=== PATIENT | male | born 1990 | race Caucasian/White ===

== ENCOUNTER 2017-08-30 19:33 | Observation (INO) ==
--- NOTE | 2017-08-30 19:41 | Emergency Department Note ---
Disposition Clinical Impression: Seizure, Vomiting, Abnormal EKG, Diarrhea Disposition: Admitted As Inpatient Referrals: NONE,PCP [Primary Care Provider] - Forms: ED Satisfaction Letter General Adult HPI - General Chief complaint: ED Nausea/Vomiting/Diarrhea Stated complaint: N/V vertigo Time Seen by Provider: 08/30/17 19:39 - History of Present Illness HPI Narrative: 27-year-old male reports to the emergency department complaining of vomiting and diarrhea which started after work today. There is been no blood or black material in the emesis or stool. He denies abdominal pain. The patient did not eat any unusual foods, there is no history of fever, the patient has not been exposed to other persons with the vomiting or diarrheal type illness. He reports some muscle spasms. He describes an occasional tinge or twitch in his body. There is no history of connor seizure-like activity. No chest pain or shortness of breath. No syncope weakness or dizziness. The patient denies any major medical problems. He does not take medications daily. There is no history of rash back pain or urinary problems. There is no history of confusion. No cough runny nose or pain or sore throat. Vomiting and diarrhea are reported. Pain Scale: 0 - Related Data Home Medications Medication Instructions Recorded Confirmed Buprenorphine HCl/Naloxone HCl 1 each SL BID 08/30/17 08/30/17 [Buprenorphin-Naloxon 8-2 mg Sl] Gabapentin [Neurontin] 300 mg PO TID 08/30/17 08/30/17 Allergies Allergy/AdvReac Type Severity Reaction Status Date / Time [facility] [[facility]] Allergy See Verified 08/30/17 19:34 Comments All systems ED: reviewed and negative except as stated. Past Medical History - Past Medical History Medical history: Reports: no medical history Physical Exam - General Limitations: no limitations General appearance: alert, in no apparent distress - Head Head exam: atraumatic, normocephalic, normal inspection - Eye Eye exam: Present: normal appearance, PERRL, EOMI. Absent: scleral icterus, conjunctival injection, mydriasis, periorbital swelling - ENT ENT exam: normal exam, normal oropharynx, mucous membranes moist, TM's normal bilaterally, normal external ear exam - Neck Neck exam: Present: normal inspection, full ROM, trachea midline. Absent: tenderness - Chest Chest inspection: Present: symmetric chest wall rise. Absent: tenderness - Respiratory Respiratory exam: Present: normal lung sounds bilaterally. Absent: respiratory distress, wheezes, stridor, accessory muscle use, prolonged expiratory phase - Cardiovascular Cardiovascular exam: Present: regular rate, normal rhythm, normal heart sounds - Abdominal Exam Abdominal exam: Present: soft, Non-Tender, normal bowel sounds. Absent: tenderness, distention, guarding, rebound, rigidity, Quispe's sign, Rovsing's sign, tenderness at McBurney's Point, pulsatile mass - Extremities Exam Extremities exam: Present: normal inspection, full ROM, normal capillary refill. Absent: tenderness, pedal edema, joint swelling, calf tenderness - Expanded Lower Extremity Exam Neurovascular/Tendon exam: Present: normal capillary refill. Absent: motor deficit, sensory deficit, tendon deficit, extremity cold to touch, pallor - Back Exam Back exam: Present: normal inspection, full ROM. Absent: tenderness, CVA tenderness (R), CVA tenderness (L), vertebral tenderness - Neurological Exam Neurological exam: Present: alert, oriented X3, CN II-XII intact. Absent: motor sensory deficit - Psychiatric Psychiatric exam: Present: normal affect, normal mood - Skin Skin exam: Present: warm, dry, intact, normal color. Absent: rash, cyanosis, diaphoresis, erythema, pallor, mottled Course Course Narrative: The patient was being monitored in the emergency department, he stood up to urinate and then developed convulsive activity and fell, he was caught by nursing did not hit the floor and sustained no trauma. Ativan was given 2 mg IV 1 and he recovered and seizure activity abated. Vital Signs Temperature 98.0 F 08/30/17 19:35 Pulse Rate 83 08/30/17 19:35 Respiratory Rate 18 08/30/17 19:35 Blood Pressure 125/56 08/30/17 19:35 O2 Sat by Pulse Oximetry 98 08/30/17 19:35 Temperature 98.0 F 08/30/17 19:43 Pulse Rate 16 08/30/17 21:24 Respiratory Rate 16 08/30/17 21:24 Blood Pressure 136/62 08/30/17 21:24 O2 Sat by Pulse Oximetry 97 08/30/17 21:24 Oxygen Delivery Oxygen Delivery Nasal Cannula Medical Decision Making - [facility] Narrative Medical decision making narrative: The patient's laboratory studies are unremarkable, CT head and chest x-ray are negative. EKG shows what appear to be ST depressions in V3 and V4 there is an intraventricular conduction delay as well. Troponin negative. The patient does not describe chest pain. The patient denied any medical history but on review he may have had a seizure many many years ago, he is currently not treated, mother is here and reports he has never had a seizure. The patient does not describe recurrent seizures. Based on the patient's apparent grand mal seizure, abnormal EKG, complaints of recurrent vomiting and diarrhea, I thought it would be appropriate to admit the patient the hospital. I discussed case with the hospitalist on-call who has accepted the patient to their care. - Lab Data Lab results reviewed: Yes I reviewed the patient's lab results. Result diagrams: 08/30/17 20:00 08/30/17 20:00 Lab Results 08/30/17 08/30/17 08/30/17 Range/Units 20:00 20:00 20:00 WBC 7.2 (4.3-11.1) K/mcL RBC 5.33 (4.19-5.50) M/mcL Hgb 15.3 (12.9-16.9) g/dL Hct 43.6 (37.5-50.1) % MCV 81.8 L (83.0-100.0) fL MCH 28.7 (28.0-33.3) pg MCHC 35.1 (31.6-35.5) g/dL RDW 12.3 (11.5-14.5) % Plt Count 180 (140-400) K/mcL MPV 10.5 (9.4-12.4) fL Immature Gran % 0.3 (0-4) % Seg Neutrophils % 76.3 % Lymphocytes % 16.5 % Monocytes % 6.4 % Eosinophils % 0.1 % Basophils % 0.4 % Neutrophils # 5.5 (1.6-8.9) K/mcL Lymphocytes # 1.2 (0.6-4.6) K/mcL Monocytes # 0.5 (0.0-1.3) K/mcL Eosinophils # 0.0 (0.0-0.6) K/mcL Basophils # 0.0 (0.0-0.2) K/mcL Sodium 142 (136-145) mEq/L Potassium 3.6 (3.5-5.1) mEq/L Chloride 107 (98-107) mEq/L Carbon Dioxide 26 (23-29) mEq/L BUN 11 (6-20) mg/dL Creatinine 0.98 (0.70-1.30) mg/dL Est GFR ( Amer) > 60 (> 60) Est GFR (Non-Af Amer) > 60 (> 60) BUN/Creatinine Ratio 11 (6-26) Glucose 115 H (70-105) mg/dL POC Glucose (70-99) mg/dL Calculated Osmolality 294 (280-300) Lactic Acid (0.5-2.2) mmol/L Calcium 9.2 (8.6-10.3) mg/dL Phosphorus (2.7-4.5) mg/dL Magnesium (1.6-2.6) mg/dL Total Bilirubin 0.6 (0.3-1.0) mg/dL Direct Bilirubin 0.2 (0.0-0.2) mg/dL Indirect Bilirubin 0.4 (0.0-1.2) mg/dL AST 29 (13-39) Units/L ALT 37 (7-52) Units/L Alkaline Phosphatase 58 (34-104) Units/L Troponin I < 0.03 (< 0.04) ng/mL C-Reactive Protein < 5 (Less than 10) mg/L Serum Total Protein 7.3 (6.4-8.9) g/dL Albumin 4.8 (3.5-5.7) g/dL Globulin 2.5 (2.4-3.5) g/dL Albumin/Globulin Ratio 1.9 (1.1-2.2) Lipase 7 L (11-82) Units/L 08/30/17 08/30/17 08/30/17 Range/Units 20:00 20:00 20:25 WBC (4.3-11.1) K/mcL RBC (4.19-5.50) M/mcL Hgb (12.9-16.9) g/dL Hct (37.5-50.1) % MCV (83.0-100.0) fL MCH (28.0-33.3) pg MCHC (31.6-35.5) g/dL RDW (11.5-14.5) % Plt Count (140-400) K/mcL MPV (9.4-12.4) fL Immature Gran % (0-4) % Seg Neutrophils % % Lymphocytes % % Monocytes % % Eosinophils % % Basophils % % Neutrophils # (1.6-8.9) K/mcL Lymphocytes # (0.6-4.6) K/mcL Monocytes # (0.0-1.3) K/mcL Eosinophils # (0.0-0.6) K/mcL Basophils # (0.0-0.2) K/mcL Sodium (136-145) mEq/L Potassium (3.5-5.1) mEq/L Chloride (98-107) mEq/L Carbon Dioxide (23-29) mEq/L BUN (6-20) mg/dL Creatinine (0.70-1.30) mg/dL Est GFR ( Amer) (> 60) Est GFR (Non-Af Amer) (> 60) BUN/Creatinine Ratio (6-26) Glucose (70-105) mg/dL POC Glucose 115 H (70-99) mg/dL Calculated Osmolality (280-300) Lactic Acid 1.1 (0.5-2.2) mmol/L Calcium (8.6-10.3) mg/dL Phosphorus 3.5 (2.7-4.5) mg/dL Magnesium 2.2 (1.6-2.6) mg/dL Total Bilirubin (0.3-1.0) mg/dL Direct Bilirubin (0.0-0.2) mg/dL Indirect Bilirubin (0.0-1.2) mg/dL AST (13-39) Units/L ALT (7-52) Units/L Alkaline Phosphatase (34-104) Units/L Troponin I (< 0.04) ng/mL C-Reactive Protein (Less than 10) mg/L Serum Total Protein (6.4-8.9) g/dL Albumin (3.5-5.7) g/dL Globulin (2.4-3.5) g/dL Albumin/Globulin Ratio (1.1-2.2) Lipase (11-82) Units/L - Radiology Data Radiology results reviewed: Yes I reviewed the patient's radiology results.
[2017-08-30] MEDS ORDERED: Ondansetron 4 MG/2 ML VIAL IVP ONE (19:46)
[2017-08-30 20:09] LABS: Basophils % 0.4 %; Eosinophils % 0.1 %; Hematocrit 43.6 % (37.5-50.1); Hemoglobin 15.3 g/dL (12.9-16.9); Immature Granulocytes % 0.3 % (0-4); Lymphocytes # 1.2 K/mcL (0.6-4.6); Lymphocytes % 16.5 %; Mean Corpuscular HGB Conc 35.1 g/dL (31.6-35.5); Mean Corpuscular Hemoglobin 28.7 pg (28.0-33.3); Mean Corpuscular Volume 81.8 fL (83.0-100.0); Mean Platelet Volume 10.5 fL (9.4-12.4); Monocytes # 0.5 K/mcL (0.0-1.3); Monocytes % 6.4 %; Neutrophils # 5.5 K/mcL (1.6-8.9); Platelet Count 180 K/mcL (140-400); Red Blood Count 5.33 M/mcL (4.19-5.50); Red Cell Distribution Width 12.3 % (11.5-14.5); Segmented Neutrophils % 76.3 %
[2017-08-30] MEDS ORDERED: *HR* LORazepam 2 MG/ML VIAL ONE (20:17)
[2017-08-30] MEDS ORDERED: *HR* LORazepam 2 MG/ML VIAL IVP ONE (20:22)
[2017-08-30 20:31] LABS: Magnesium 2.2 mg/dL (1.6-2.6); Phosphorous 3.5 mg/dL (2.7-4.5)
[2017-08-30 20:32] LABS: BUN/Creatinine Ratio 11 (6-26); Blood Urea Nitrogen 11 mg/dL (6-20); Calcium 9.2 mg/dL (8.6-10.3); Carbon Dioxide 26 mEq/L (23-29); Chloride 107 mEq/L (98-107); Glucose 115 mg/dL (70-105); Lipase 7 Units/L (11-82); Osmolality,Calculated 294 (280-300); Potassium 3.6 mEq/L (3.5-5.1); Sodium 142 mEq/L (136-145); eGFR For African Americans > 60 (> 60); eGFR For Non-African Americans > 60 (> 60)
[2017-08-30 20:33] LABS: Alanine Aminotransferase 37 Units/L (7-52); Albumin 4.8 g/dL (3.5-5.7); Albumin/Globulin Ratio 1.9 (1.1-2.2); Alkaline Phosphatase 58 Units/L (34-104); Aspartate Amino Transferase 29 Units/L (13-39); Bilirubin,Direct 0.2 mg/dL (0.0-0.2); Bilirubin,Indirect 0.4 mg/dL (0.0-1.2); Bilirubin,Total 0.6 mg/dL (0.3-1.0); C-Reactive Protein < 5 mg/L (Less than 10); Globulin 2.5 g/dL (2.4-3.5); Total Protein 7.3 g/dL (6.4-8.9)
[2017-08-30 20:47] LABS: Troponin I < 0.03 ng/mL (< 0.04)
[2017-08-30 21:56] LABS: Amphetamine Screen,Urine Negative ng/mL (Cutoff=1000); Barbiturate Screen,Urine Negative ng/mL (Cutoff=200); Benzodiazepines Screen,Urine Negative ng/mL (Cutoff=200); Cannabinoid Screen,Urine Negative ng/mL (Cutoff = 50); Cocaine Screen,Urine Negative ng/mL (Cutoff= 300); Opiate Screen,Urine Negative ng/mL (Cutoff=300); Phencyclidine Screen,Urine Negative ng/mL (Cutoff=25)
[2017-08-31] MEDS ORDERED: Naloxone 0.4 MG/ML INJ IVP PRN (00:27)
[2017-08-31] MEDS ORDERED: Acetaminophen 325 MG TABLET PO PRN (00:27)
[2017-08-31] MEDS ORDERED: Ringers Solution, Lactated 1,000 ML IVC SCH (00:30)
[2017-08-31] MEDS ORDERED: GADOBUTROL IV PRN (00:32)
--- NOTE | 2017-08-31 00:36 | Internal Med History&Physical ---
Date of Encounter: 08/31/17 Time of Encounter: 00:35 Internal Medicine - H&P: HPI Chief complaint: Vomiting, diarrhea, seizure Admitted From: Emergency Dept Plans for Post Hospital Care: Home History of present illness: Mr. Castillo is a 27 year old male with h/o- opiate addiction, now on Suboxone therapy, presents with c/o- sudden onset of vomiting and diarrhea and muscle twitching this evening. He went to work today and did well, and he developed sudden onset of multiple episodes of vomiting and diarrhea after he got home, along with muscle twitches. Vomiting was bilious and nonbloody; these symptoms currently subsided. No sick contacts at home, no outside food ingestion. Patient got up to use the urinal in the ER, when he had a witnessed generalized tonic-clonic seizure, which improved with IV Ativan. He denies headache, chest pain, blurred vision, dyspnea, nausea, vomiting at this time. No focal weakness and paresthesias. No prior h/o- seizures. Denies drug use. Past Med Surg Social Fam HX - Past Medical History Source: patient Medical history: no medical history Psychiatric history: no psych history - Past Surgical History Surgical History: no surgical history - Social History Smoking Status: Never smoker Smokeless Tobacco Status: Yes Alcohol use: none Drug use: none Occupational status: employed Current living situation: Home, With Family Activity Level: Independent ambulation Recent Out of Country Travel Within the Last 8 Weeks: No Exposure or Possible Exposure to Illness During Travel: No - Family History Mother Living Status: Still Living Internal Medicine - H&P: Meds Buprenorphine HCl/Naloxone HCl [Buprenorphin-Naloxon 8-2 mg Sl] 1 each SL BID [History] Gabapentin [Neurontin] 300 mg PO TID 08/30/17 [History] 3 Allergy/AdvReac Type Severity Reaction Status Date / Time Cefaclor [From [facility]] Allergy See Verified 08/30/17 19:34 Comments All Systems PM: A 10-system review of systems was performed and is negative for pertinent findings except as documented above in the HPI. - Constitutional Constitutional: no chills, no fever(s), no night sweats - EENT Eyes: no change in vision, no discharge, no pain, no photophobia Ears: no ear discharge, no ear pain, no tinnitus Nose, mouth and throat: no dysphagia, no nasal discharge, no neck pain, no sore throat - Cardiovascular Cardiovascular ROS IM: no chest pain, no diaphoresis, no dyspnea, no lightheadedness, no palpitations, no syncope - Respiratory Respiratory: no cough, no dyspnea, no wheezing, no excessive phlegm production - Gastrointestinal Gastrointestinal: diarrhea, nausea, vomiting - Musculoskeletal Musculoskeletal ROS IM: muscle cramps, muscle weakness, no numbness, no tingling - Integumentary Integumentary IM: no rash, no unusual bruising - Neurological Neurological ROS: abnormal movements, convulsions - Hematologic/Lymphatic Hematologic/Lymphatic: no easy bruising - Constitutional Vitals: Temp Pulse Resp BP Pulse Ox 98.6 F 74 17 131/71 99 08/30/17 23:25 08/30/17 23:25 08/30/17 23:25 08/30/17 23:25 08/30/17 23:25 General appearance: Present: A&O X 3, answers questions appropriately - Respiratory Respiratory exam: Present: CTAB. Absent: accessory muscle use, rales, rhonchi, wheezes - Cardiovascular Cardiovascular exam: Present: RRR, +S1, +S2. Absent: diastolic murmur, gallop, rubs, systolic murmur - GI/Abdominal GI/Abdominal exam: Present: normal bowel sounds, soft, no peritoneal signs. Absent: distended, tenderness - Extremities Exam Extremities exam: Present: full ROM, warm, radial pulses palpable and symmetrical. Absent: calf tenderness, cyanotic, pedal edema - Neurological Exam Neurological exam: Present: CN II-XII intact, oriented X3, no focal deficits. Absent: pronater drift, facial droop, speech deficit - Skin Skin exam: Present: dry, intact Internal Med - H&P Results - Labs CBC & Chem 7: 08/30/17 20:00 08/30/17 20:00 - Assessment and plan (1) Seizure Current Visit: Yes Status: Acute Assessment and plan: new onset of GTC seizure. Seizure precautions and monitor closely for recurrence. Telemetry monitoring, serial Troponins. Post-seizure EKG shows sinus tachycardia with TWI and ST depression in anterior leads; to repeat EKG in am. PRN IV Ativan for repeat seizures. Monitor electrolytes. CT head showed no acute abnormality. Check MRI brain. (2) Opiate addiction Current Visit: Yes Status: Chronic Assessment and plan: continue home dose of Suboxone; urine drug screen negative. Qualifiers: Substance use status: in remission Qualified Code(s): F11.21 - Opioid dependence, in remission (3) Vomiting Current Visit: Yes Status: Acute Assessment and plan: resolved now; unclear etiology. Qualifiers: Vomiting type: unspecified Vomiting Intractability: non-intractable Nausea presence: with nausea Qualified Code(s): R11.2 - Nausea with vomiting, unspecified - Time Spent With Patient Total time spent is greater than 50% in coordination of care (as documented) at patient's floor/unit and/or counseling patient:
[2017-08-31] MEDS ORDERED: *HR* LORazepam 2 MG/ML VIAL IVP PRN (02:01)
[2017-08-31 04:40] LABS: Basophils % 0.1 %; Hematocrit 39.5 % (37.5-50.1); Hemoglobin 13.8 g/dL (12.9-16.9); Immature Granulocytes % 0.4 % (0-4); Lymphocytes # 1.3 K/mcL (0.6-4.6); Lymphocytes % 15.2 %; Mean Corpuscular HGB Conc 34.9 g/dL (31.6-35.5); Mean Corpuscular Hemoglobin 28.6 pg (28.0-33.3); Monocytes # 0.8 K/mcL (0.0-1.3); Monocytes % 8.8 %; Neutrophils # 6.5 K/mcL (1.6-8.9); Platelet Count 183 K/mcL (140-400); Red Blood Count 4.82 M/mcL (4.19-5.50); Red Cell Distribution Width 12.5 % (11.5-14.5); Segmented Neutrophils % 75.5 %
[2017-08-31 05:04] LABS: Troponin I < 0.03 ng/mL (< 0.04)
[2017-08-31 05:06] LABS: BUN/Creatinine Ratio 10 (6-26); Blood Urea Nitrogen 9 mg/dL (6-20); Calcium 9.1 mg/dL (8.6-10.3); Carbon Dioxide 24 mEq/L (23-29); Chloride 108 mEq/L (98-107); Glucose 109 mg/dL (70-105); Magnesium 2.3 mg/dL (1.6-2.6); Osmolality,Calculated 289 (280-300); Phosphorous 4.2 mg/dL (2.7-4.5); Potassium 3.9 mEq/L (3.5-5.1); Sodium 140 mEq/L (136-145); eGFR For African Americans > 60 (> 60); eGFR For Non-African Americans > 60 (> 60)
[2017-08-31] MEDS: Gabapentin 300 MG CAPSULE PO SCH ×2 (08:23→13:06)
[2017-08-31] MEDS ORDERED: NALOXONE SL SCH (09:00)
[2017-08-31] MEDS ORDERED: BUPRENORPHINE HCL SL SCH (09:00)
--- NOTE | 2017-08-31 13:19 | Internal Med Progress Note ---
Date of Encounter: 08/31/17 Time of Encounter: 13:17 - Assessment and plan (1) Seizure Current Visit: Yes Status: Acute Assessment and plan: New-onset of generalized tonic clonic seizure. Seizure was witnessed by ED staff. No prior history of seizures. CT of head and MRI of head negative for acute intracranial abnormality Post-seizure EKG shows sinus tachycardia with TWI and ST depression in anterior leads; to repeat EKG in am. PRN IV Ativan for repeat seizures. Continue to Monitor electrolytes. Neurology consult-spoke with Dr. Ortega who is recommended an EEG. Thank you for consultation; awaiting further recommendations per neurology Continue seizure precautions (2) Vomiting Current Visit: Yes Status: Resolved Assessment and plan: Patient worsened with nausea vomiting and diarrhea Denies any ill contacts or outside food ingestion or exotic travel Since resolved Antiemetics when necessary Qualifiers: Vomiting type: unspecified Vomiting Intractability: non-intractable Nausea presence: with nausea Qualified Code(s): R11.2 - Nausea with vomiting, unspecified (3) Opiate addiction Current Visit: Yes Status: Chronic Assessment and plan: Patient has a history of opiate addiction, denies any recent use. UDS negative Continue home dose of Suboxone Qualifiers: Substance use status: in remission Qualified Code(s): F11.21 - Opioid dependence, in remission - Time Spent With Patient Total time spent is greater than 50% in coordination of care (as documented) at patient's floor/unit and/or counseling patient: Greater than 35 minutes - Subjective Interval history: Mr. Castillo is a 27 year old male with h/o- opiate addiction, now on Suboxone therapy, presents with c/o- sudden onset of vomiting and diarrhea and muscle twitching this evening. While in the ER he was witnessed to have generalized tonic clonic seizure. No prior history of seizures. Patient seen and examined at the bedside. Alert and oriented 3, able to participate in exam, verbal responses appear to be delayed likely due to postictal state. Patient denies any additional seizure-like activity. - Constitutional Vitals: Temp Pulse Resp BP Pulse Ox 97.8 F 78 16 110/58 97 08/31/17 11:37 08/31/17 11:37 08/31/17 11:37 08/31/17 11:37 08/31/17 11:37 General appearance: Present: A&O X 3, answers questions appropriately - Head Head exam: Present: atraumatic, normocephalic - Eye Eye exam: Present: PERRL, conjuntiva pink, sclera anicteric Pupils: Present: PERRL - Neck Neck exam general surgery: Present: supple, trachea midline. Absent: lymphadenopathy - Respiratory Respiratory exam: Present: CTAB. Absent: accessory muscle use, rales, rhonchi, wheezes - Cardiovascular Cardiovascular exam: Present: RRR, +S1, +S2. Absent: diastolic murmur, gallop, rubs, systolic murmur - GI/Abdominal GI/Abdominal exam: Present: normal bowel sounds, soft, no peritoneal signs. Absent: distended, tenderness - Extremities Exam Extremities exam: Present: warm, radial pulses palpable and symmetrical. Absent : calf tenderness, cyanotic, pedal edema - Neurological Exam Neurological exam: Present: alert, CN II-XII intact, oriented X3, no focal deficits, strengths equal and symetr throughout. Absent: pronater drift, facial droop, speech deficit - Skin Skin exam: Present: dry, intact Internal Medicine: Result - Labs CBC & Chem 7: 08/31/17 04:09 08/31/17 04:09 Labs: Short CBC 08/31/17 Range/Units 04:09 WBC 8.6 (4.3-11.1) K/mcL Hgb 13.8 D (12.9-16.9) g/dL Hct 39.5 (37.5-50.1) % Plt Count 183 (140-400) K/mcL Neutrophils # 6.5 (1.6-8.9) K/mcL BMP 08/31/17 04:09 Sodium 140 Potassium 3.9 Chloride 108 H Carbon Dioxide 24 BUN 9 Creatinine 0.88 Glucose 109 H Calcium 9.1 Cardiac Enzymes 08/31/17 Range/Units 04:09 Troponin I < 0.03 (< 0.04) ng/mL - Impressions Impressions Brain MRI 08/31/17 00:32 IMPRESSION: No acute brain parenchymal abnormality. There is no evidence for mesial temporal sclerosis. D/ / 08/31/2017 11:50:38 Gali Garcia MD / [facility] Interpreting Provider: Gali Garcia MD Consult Discharge Plan - Plan Referrals: NONE,PCP [Primary Care Provider] -
--- NOTE | 2017-08-31 15:01 | Neurology - Consult Note ---
Date of Encounter: 08/31/17 Time of Encounter: 14:58 Assessment and Plan (1) Single unprovoked seizure Current Visit: Yes Status: Acute Patient's neuro exam was nonfocal and nonlateralizing. He was witnessed to have generalized tonic-clonic seizure in the emergency department. He was given 2 mg of IV Ativan. Patient has not had any seizure after that. He is awake and alert and oriented 3. Patient's CT of the head and MRI of the brain were negative. CBC, CMP were negative. Urine drug screen was negative. Plan: This is patient's first seizure, unprovoked. EEG negative for seizure activity. History of Present Illness Chief complaint: Nausea or vomiting HPI: Mr. Castillo is a 27 year old male presented with chief complaint of nausea vomiting. Patient reported that at the end of his work day he had right lower abdominal quadrant pain. When he came home he went to bed and after waking up his right lower quadrant abdominal pain had resolved but he had a headache that was high frontal throbbing with light sensitivity and without photophobia. Along with this he had nausea and vomiting multiple times. Along with this patient reports whole body muscle twitches. Because of this patient presented to the emergency room. Patient has a history of opiate addiction (Percocet) and is on now on Suboxone therapy. While giving a urine for urine drug screen he had a witnessed generalized tonic-clonic seizure. Patient reports no past history of seizures, head trauma. Patient's seizure lasted for 2 minutes. He was given IV Ativan. He denied any prodromal symptoms. He had around 20 minutes of confusion postseizure. Patient denies being started on any new medications. He denies any recent drug abuse. He denies any recent infections. Patient works at [employer]. Currently patient denies headache, double vision, numbness, tingling, nausea, vomiting. Past Med Surg Social Fam HX - Past Medical History Medical history: no medical history Psychiatric history: no psych history - Past Surgical History Surgical History: no surgical history - Social History Smoking Status: Never smoker Smokeless Tobacco Status: Yes Alcohol use: none Drug use: none - Family History Mother Living Status: Still Living Medications and Allergies Buprenorphine HCl/Naloxone HCl [Buprenorphin-Naloxon 8-2 mg Sl] 1 each SL BID [History] Gabapentin [Neurontin] 300 mg PO TID 08/30/17 [History] 3 Allergy/AdvReac Type Severity Reaction Status Date / Time [facility] Allergy See Verified 08/30/17 19:34 Comments All Systems: The remainder of the systems were reviewed and are negative Review of Systems: Constitutional: Denies fever, chills HEENT: Reports headache. Denies , vision changes, neck pain, sore throat, rhinorrhea Heart: Denies chest pain palpitations Lungs: Denies shortness of breath cough Abdomen: Denies abdominal pain . Reports nausea vomiting diarrhea Back: Denies back pain Kidney: Denies dysuria, hematuria Skin: Denies rash, lesions Extremities: Denies swelling, pain Neuro: As per history of present illness Physical Examination - Vital Signs Vital Signs: Initial Vital Signs Temp Pulse Resp BP Pulse Ox 98.0 F 83 18 125/56 98 08/30/17 19:35 08/30/17 19:35 08/30/17 19:35 08/30/17 19:35 08/30/17 19:35 - Exam Exam: General: without distress HEENT: Head atraumatic, normocephalic, EOMI, PERRL, neck nontender to palpation , absent lymphadenopathy, Moist Mucous Membranes, Heart: Regular rate and rhythm with no murmur Lungs: Clear to auscultation bilaterally Abdomen: Soft nontender, nondistended positive bowel sounds Skin: warm and dry, absent rash Extremities: Absent pedal edema Vascular: Pedal and radial pulses 2 out of 4 - Neurologic Detailed motor examination: full strength in all major muscle groups Motor examination - right side: 5/5: deltoids, biceps, triceps, wrist flexion, wrist extension, equipment maintenance tech, hip flexors, tibialis Anterior, quadriceps, toe extension (EHL), plantarflexion Motor examination - left side: 5/5: deltoids, biceps, triceps, wrist flexion, wrist extension, hip flexors, equipment maintenance tech, quadriceps, tibialis Anterior, toe extension (EHL), plantarflexion Detailed sensory examination: intact Reflex and gait examination: intact Reflexes: Biceps: 2+, Triceps: 2+, Brachioradialis: 2+, Patella: 2+, Achilles: 2 + Mental Status Examination: awake, alert, oriented to person, oriented to place, oriented to time, follows commands appropriately, answers questions appropriately, no agnosia, no aphasia, no aproxia Cranial nerve examination: PERRL, EOMI, visual hahn intact, sensory to face intact, mastication intact, no facial asymmetry is present, no dysarthria, hearing is intact symmetrically, soft palate elevates bilaterally upon phonation , flexes SCM and trapezius muscles symmetrically with full power, tongue protrudes midline, no atrophy or facial fasiculations present Cerebellar examination: no dysmetria, performs finger to nose and heel to tavares symmetrically without ataxia, no gait ataxia, no truncal ataxia, no difficulty with rapid alternating movements Results - Laboratory Findings CBC and BMP: 08/31/17 04:09 08/31/17 04:09 Abnormal lab findings: Abnormal lab results MCV 82.0 fL (83.0-100.0) L 08/31/17 04:09 Chloride 108 mEq/L (98-107) H 08/31/17 04:09 Glucose 109 mg/dL (70-105) H 08/31/17 04:09 POC Glucose 115 mg/dL (70-99) H 08/30/17 20:25 Lipase 7 Units/L (11-82) L 08/30/17 20:00 Consult Discharge Plan - Plan Referrals: NONE,PCP [Primary Care Provider] -
--- NOTE | 2017-08-31 15:06 | EEG/EMG/Oth Biometrics Report ---
EEG Procedure Report Date of procedure: 08/31/17 Procedure Note: This EEG was acquired with standard international 10-20 system with EKG recording. The background EEG activity was characterized by the presence of posterior dominant alpha rhythm with the best frequency up to 9.5 Hz. The background activity was reactive to eye openings. Sleep stages were characterized by the presence of background fragmentation, vertex waves, K complexes, and sleep spindles. There are no electrographic seizures identified during this tracing. There are no epileptiform discharges and focal slowing noted during this recording. Photic stimulation produced and hyperventilation produced no abnormalities. Hyperventilation efforts appeared adequate due to development of diffuse background slow during and immediately after HV challenge. EKG tracing showed no significant cardiac dysrhythmia. Impression: This is essentially a normal awake and asleep EEG. Clinical Correlation: Normal EEGs, however, do not exclude epilepsy. Clinical correlation is advised.
[2017-08-31 15:44] VITALS: BP 122/55
--- NOTE | 2017-08-31 16:21 | Electrocardiograph Report ---
[place] [id number] Test Date: 2017-08-30 Pat Name: Hipolito Castillo Department: 103 Room: 3B13 Gender: M Degree Clerk: maximo : 1990 Requested By: Ramakrishna Hamlin Order Number: [id number] Reading MD: Jessica Avalos Measurements Intervals [place] Rate: 113 P: 62 NE: 132 QRS: 55 QRSD: 106 T: 53 QT: 324 QTc: 391 Interpretive Statements SINUS TACHYCARDIA INCOMPLETE RIGHT BUNDLE BRANCH BLOCK [90+ ms QRS DURATION, TERMINAL R IN V1/V2, 40+ ms S IN I/aVL/V4/V5/V6] ST DEVIATION AND MODERATE T-WAVE ABNORMALITY, CONSIDER ANTERIOR ISCHEMIA [-0.1+ mV T WAVE IN V3/V4] Electronically Signed On 08-31-2017 16:19:26 EDT by Jessica Avalos
--- NOTE | 2017-08-31 17:10 | Discharge Summary ---
- NOTES TO OUTPATIENT PROVIDER Notes to Outpatient Provider: Follow-up with primary care provider in one to 2 weeks after discharge. Had tonic-clonic seizure while inpatient 1 event; no prior history Orders not resulted at time of discharge: Pending orders 09/01/17 06:00 EKG [ECG 12 lead ECG] [ECG] AM 0600 Date of Encounter: 08/31/17 Time of Encounter: 17:07 - Discharge Diagnosis (1) Seizure Priority: Primary Status: Acute Assessment and Plan: New-onset of generalized tonic clonic seizure. Seizure was witnessed by ED staff. No prior history of seizures. CT of head and MRI of head negative for acute intracranial abnormality Post-seizure EKG shows sinus tachycardia with TWI and ST depression in anterior leads; to repeat EKG in am. PRN IV Ativan for repeat seizures. Continue to Monitor electrolytes. Neurology consult EEG complete negative for seizure activity Exam remains nonfocal and non-lateralizing no additional seizures since admission. Patient is awake alert and oriented 3 and appropriate. This is his first unprovoked seizure given negative EEG and a stable clinical status the patient is medically ready for discharge. He has been instructed to follow up with his PCP in 1-2 weeks following discharge (2) Vomiting Priority: Secondary Status: Resolved Assessment and Plan: Patient worsened with nausea vomiting and diarrhea Denies any ill contacts or outside food ingestion or exotic travel Since resolved Antiemetics when necessary Qualifiers: Vomiting type: unspecified Vomiting Intractability: non-intractable Nausea presence: with nausea Qualified Code(s): R11.2 - Nausea with vomiting, unspecified (3) Opiate addiction Priority: Secondary Status: Chronic Assessment and Plan: Patient has a history of opiate addiction, denies any recent use. UDS negative Continue home dose of Suboxone Qualifiers: Substance use status: in remission Qualified Code(s): F11.21 - Opioid dependence, in remission Hospital course: Mr. Castillo is a 27 year old male see assessment and plan for hospital course Discharge discussed with: patient, nurse - Time Spent with Patient Total time spent providing and/or coordinating discharge services: Less than 30 minutes - Discharge Medications Home Medications: Buprenorphine HCl/Naloxone HCl [Buprenorphin-Naloxon 8-2 mg Sl] 1 each SL BID [History] Gabapentin [Neurontin] 300 mg PO TID 08/30/17 [History] Allergies/Adverse Reactions: 3 Allergy/AdvReac Type Severity Reaction Status Date / Time Cefaclor [From Ceclor] Allergy See Verified 08/30/17 19:34 Comments Date of admission: 08/30/17 23:02 Primary care physician: PCP NONE Consults: 08/31/17 10:18 Consult to [facility] [CONS] Routine Reason for SW Consult: OPIATE ADDICTION 08/31/17 12:09 Consult to Neurology [CONS] Routine Consulting Provider: [facility] Reason for Consult: New tonic-clonic seizures Time Notified: 12:09 Call Completed: Yes 08/31/17 15:17 Consult to Interpret Exam [CONS] Routine Consulting Provider: Familia Tran Consult to Interpret Exam: Interpret Sleep Study Discharging clinician: Apolinar Davis Anticipated date of discharge: 08/31/17 - Constitutional Vitals: Temp Pulse Resp BP Pulse Ox 98.2 F 97 14 122/55 93 08/31/17 15:43 08/31/17 15:43 08/31/17 15:43 08/31/17 15:43 08/31/17 15:43 General appearance: Present: A&O X 3, answers questions appropriately - Head Head exam: Present: atraumatic, normocephalic - Eye Eye exam: Present: PERRL, conjuntiva pink, sclera anicteric Pupils: Present: PERRL - Neck Neck exam general surgery: Present: supple, trachea midline. Absent: lymphadenopathy - Respiratory Respiratory exam: Present: CTAB. Absent: accessory muscle use, rales, rhonchi, wheezes - Cardiovascular Cardiovascular exam: Present: RRR, +S1, +S2. Absent: diastolic murmur, gallop, rubs, systolic murmur - GI/Abdominal GI/Abdominal exam: Present: normal bowel sounds, soft, no peritoneal signs. Absent: distended, tenderness - Extremities Exam Extremities exam: Present: warm, radial pulses palpable and symmetrical. Absent : calf tenderness, cyanotic, pedal edema - Neurological Exam Neurological exam: Present: CN II-XII intact, oriented X3, no focal deficits. Absent: pronater drift, facial droop, speech deficit - Skin Skin exam: Present: dry, intact - Patient Status Disposition: Home, Self-Care Condition: Good Overall status at discharge: patient is back to baseline - Discharge Instructions Follow Up With: NONE,PCP [Primary Care Provider] - - Diet and Activity Diet: advance to your usual diet
== END 2017-08-31 18:22 | disposition home or self-care (01) ==
LOC: EMEROO 19:33 → 3BNU 19:33
PROVIDERS: ADMIT Internal Medicine; ATTEND Internal Medicine